=== PATIENT | female | born 1985 | race American Indian/Alaskan Native ===

== ENCOUNTER 2018-04-06 08:49 | Emergency (ER) | payer MEDICAID ==
[~2018-04-06] VITALS: Ht 170.2 cm; Wt 90.3 kg
[2018-04-06 08:57] VITALS: Ht 170.2 cm; Wt 90.3 kg
[2018-04-06 11:06] VITALS: BP 120/69
== END 2018-04-06 11:06 | disposition home or self-care (01) ==
LOC: ED 08:49
DX: R51 Headache (principal); R11.0 Nausea
CPT/HCPCS: J1885; Q0162

== ENCOUNTER 2019-03-14 18:33 | Emergency (ER) | payer OTHER ==
[~2019-03-14] VITALS: Ht 170.2 cm; Wt 81.2 kg
[2019-03-14 18:44] VITALS: BP 137/88
== END 2019-03-14 20:39 | disposition home or self-care (01) ==
LOC: ED 18:33
DX: R05 Cough (principal); R06.02 Shortness of breath; R07.0 Pain in throat

== ENCOUNTER 2020-04-18 10:30 | Emergency (ER) | payer OTHER ==
[~2020-04-18] VITALS: Ht 170.2 cm; Wt 85.3 kg
[2020-04-18 10:38] VITALS: BP 124/76; Ht 170.2 cm; Wt 85.3 kg
== END 2020-04-18 13:00 | disposition home or self-care (01) ==
LOC: ED 10:30
DX: R51.9 Headache, unspecified (principal); R20.2 Paresthesia of skin